=== PATIENT | male | born 1995 | race African-American/Black ===

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

== ENCOUNTER 2017-10-06 20:45 | Emergency (ER) | payer OTHER ==
[~2017-10-06] VITALS: Ht 177.8 cm; Wt 73.0 kg
[2017-10-06 21:21] VITALS: BP 122/58; PULSE 69; RESP 18; TEMP 97.1; O2SAT 100
[2017-10-06] MEDS ORDERED: TETANUS/DIPHTHERIA TOXOID ADULT 0.5 ML VIAL IM ONE (23:00)
[2017-10-06] MEDS ORDERED: LIDOCAINE 1%/EPINEPHrine 1:100,000 SOLN 20 ML VIAL INFIL ONE (23:00)
[2017-10-06] MEDS ORDERED: LIDOCAINE 1%/EPINEPHrine 1:100,000 SOLN 30 ML VIAL ONE (23:12)
[2017-10-07] MEDS ORDERED: IBUPROFEN 600 MG TAB PO ONE
--- NOTE | 2017-10-07 00:02 | PD ---
HPI Chief Complaint: Laceration/Skin Injury Time Seen by Provider: 22:52 Travel History International Travel<30 days: No Contact w/Intl Traveler<30days: No Traveled to known affect area: No History of Present Illness HPI Patient is a 22 year old male who comes in with a laceration to his lip after he was elbowed in the face during a basketball game. He denies any other injuries. He did not pass out or fall to the ground. He has no pain to his jaw. He took an Ibuprofen before coming in with minimal relief of his pain. Severity is mild to moderate. PFSH Past Medical History Autoimmune Disease: No Cardiovascular Problems: No Diminished Hearing: No Genitourinary: No Musculoskeletal: Yes (3rd fracture of left arm) Neurologic: No Psychiatric: No Respiratory: No Immunizations Current: Yes Past Surgical History Other Surgery: Yes (left arm fracture repair) Social History Alcohol Use: No Tobacco Use: No Substance Use: No Allergies-Medications (Allergen,Severity, Reaction): Coded Allergies: No Known Allergies (Verified Adverse Reaction, Unknown, 10/06/17) Reported Meds & Prescriptions Reported Meds & Active Scripts Active Trimox 875 Mg Tab (Amoxicillin) 875 Mg Tab 875 Mg PO Q12 10 Days Floxin (Ofloxacin) 0.3 % Soln 5 Drop LEFT EAR BID 5 Days Review of Systems General / Constitutional: No: Fever, Chills Eyes: No: Blurred Vision HENT: No: Headaches, Lightheadedness Respiratory: No: Shortness of Breath Gastrointestinal: No: Nausea, Vomiting Musculoskeletal: No: Myalgias, Pain Skin: No Rash, No Change in Pigmentation Neurologic: No: Weakness, Dizziness Physical Exam Narrative GENERAL: Awake and alert, no acute distress. SKIN: Focused skin assessment warm/dry. HEAD: Atraumatic. Normocephalic. EYES: Pupils equal and round. No scleral icterus. EOMI. ENT: Mucous membranes pink and moist. 3cm flap to the left lower lip. No loose teeth or malocclusion of the jaw. CARDIOVASCULAR: Regular rate and rhythm. No murmur appreciated. RESPIRATORY: No accessory muscle use. Clear to auscultation. Breath sounds equal bilaterally. MUSCULOSKELETAL: No obvious deformities. No clubbing. No cyanosis. No edema. NEUROLOGICAL: Awake and alert. No obvious cranial nerve deficits. Motor grossly within normal limits. Normal speech. Data Data Last Documented VS Vital Signs Date Time Temp Pulse Resp B/P (MAP) Pulse Ox O2 Delivery O2 Flow Rate FiO2 10/06/17 21:21 97.1 69 18 122/58 (79) 100 Room Air Orders Orders Tetanus/Diphtheria Tox Adult (Tetanus/Di (10/06/17 23:00) Lidocai-Epi 1%-1:100,000 Inj (Xylocaine- (10/06/17 23:00) Lidocai-Epi 1%-1:100,000 Inj (Xylocaine- (10/06/17 23:12) Ibuprofen (Motrin) (10/07/17 00:00) MDM Medical Decision Making Medical Screen Exam Complete: Yes Emergency Medical Condition: Yes Differential Diagnosis Lip laceration versus dental injury versus abrasion Narrative Course Patient is a 22 year old male who comes in after he was elbowed in the face during a basketball game. Exam shows a lip laceration. Laceration repaired. Given Ibuprofen and Tetanus updated. Discharged with prescription for pain medicine and antibiotics. Advised to follow up with max/face. Advised to return at any time for any worsening symptoms. Procedures Procedure Narrative LACERATION LOCATION: Lower lip LENGTH: 3cm NUMBER OF STITCHES/MONIQUE: 6 REPAIR: The area of the laceration was prepped with Betadine and sterilely draped. The laceration was infiltrated with 1% lidocaine. The wound was copiously irrigated and explored without evidence of foreign body, tendon injury or neurovascular injury. The wound was closed using 5-0 chromic. This was a single layer repair. Patient tolerated the procedure well. Diagnosis Primary Impression: Lip laceration Qualified Codes: S01.511A - Laceration without foreign body of lip, initial encounter Referrals: Freddie Wilson DMD call for appointment Patient Instructions: Care For Your Absorbable Stitches (ED), Facial Laceration (ED), General Instructions Additional Instructions: Follow up with Dr. Wilson. Keep the wound clean. Take all of the antibiotic. Take pain medicine as needed. Return to the ED as needed for any worsening symptoms. Scripts Tramadol (Tramadol) 50 Mg Tab 50 MG PO Q6H Y for PAIN, #7 TAB 0 Refills Prov: Shelley Mchugh MD 10/07/17 Penicillin V Potassium (Penicillin V Potassium) 500 Mg Tab 500 MG PO Q6H for Infection for 7 Days, #28 TAB 0 Refills Prov: Shelley Mchugh MD 10/07/17 Disposition: 01 DISCHARGE HOME Condition: Stable Shelley Mchugh MD Oct 07, 2017 00:02
[2017-10-07] MEDS ORDERED: PENI500T PO (00:34)
[2017-10-07] MEDS ORDERED: TRAM50TA PO (00:34)
== END 2017-10-07 00:49 | disposition home or self-care (01) ==
LOC: NEPD 20:45
DX: S01.511A Laceration without foreign body of lip, initial encounter (principal); W50.0XXA Accidental hit or strike by another person, initial encounter; Y93.67 Activity, basketball; Z23 Encounter for immunization
CPT/HCPCS: 12013; 90471; 90714